=== PATIENT | female | born 1955 | race Caucasian/White ===

== ENCOUNTER 2021-04-07 19:19 | Emergency (ER) | payer OTHER ==
[~2021-04-07 19:19] MED LIST: ABILIFY2 MG PO; ALBUTERAL INHALER; ALDACTONE100 MG PO; BACLOFEN 10MG T10 MG PO; CRESTOR10 MG PO; INCRUSE ELLI62.5 MCG INH; LEVO-T175 MCG PO; PLAVIX75 MG PO; PROTONIX 40MG T40 MG PO; SYMBICORT 16010.2 GM INH; TOPROL XL 50 MG50 MG PO; WELLBUTRIN XL300 MG PO; ZESTRIL5 MG PO
[2021-04-07] MEDS ORDERED: CYCLOBENZAPRINE10 MG PO (20:25)
[2021-04-07] MEDS ORDERED: DICLOFENAC SODI75 MG PO (20:25)
== END 2021-04-07 20:34 | disposition home or self-care (01) ==
LOC: FER 19:19
DX: S13.4XXA Sprain of ligaments of cervical spine, initial encounter (principal); R51.9 Headache, unspecified; I25.2 Old myocardial infarction; I10 Essential (primary) hypertension; J44.9 Chronic obstructive pulmonary disease, unspecified; E78.5 Hyperlipidemia, unspecified; E03.9 Hypothyroidism, unspecified; Z95.1 Presence of aortocoronary bypass graft; Z87.891 Personal history of nicotine dependence; Z88.0 Allergy status to penicillin; Z79.899 Other long term (current) drug therapy; V49.40XA Driver injured in collision with unspecified motor vehicles in traffic accident, initial encounter; Y92.410 Unspecified street and highway as the place of occurrence of the external cause
CPT/HCPCS: 72040; J1885